=== PATIENT | female | born 1995 | race Caucasian/White ===

== ENCOUNTER 2018-04-19 00:48 | Outpatient (CLI) | payer BC ==
[2018-04-19] MEDS: TERBUTALINE 1 MG/ML INJ SC (04:04)
== END 2018-04-19 07:30 | disposition home or self-care (01) ==
LOC: OBT 00:48 → L-D 00:48 → OBT 07:30
DX: O62.9 Abnormality of forces of labor, unspecified (principal); Z3A.33 33 weeks gestation of pregnancy
CPT/HCPCS: 76817; 76818; 96372

== ENCOUNTER 2018-04-21 14:34 | Outpatient (CLI) | payer BC | END 2018-04-21 16:45 | disposition home or self-care (01) | LOC: OBT 14:34 → SDS 14:34 → L-D 14:34 → OBT 16:45 | DX: O46.8X3 Other antepartum hemorrhage, third trimester (principal); Z3A.33 33 weeks gestation of pregnancy | CPT/HCPCS: 76818 ==